=== PATIENT | female | born 1960 | race African-American/Black ===

== ENCOUNTER 2021-02-11 12:54 | Outpatient (CLI) | payer OTHER | END 2021-02-11 12:55 | disposition home or self-care (01) | LOC: BICMAMMO 12:54 | PROVIDERS: ATTEND Family Medicine | DX: Z12.31 Encounter for screening mammogram for malignant neoplasm of breast (principal) | CPT/HCPCS: 77063; 77067 ==

== ENCOUNTER 2022-03-28 11:10 | Outpatient (CLI) | payer BC | END 2022-03-28 11:11 | disposition home or self-care (01) | LOC: BICMAMMO 11:10 | PROVIDERS: ATTEND Family Medicine | DX: Z12.31 Encounter for screening mammogram for malignant neoplasm of breast (principal) | CPT/HCPCS: 77063; 77067 ==